=== PATIENT | female | born 1965 | race Caucasian/White ===

== ENCOUNTER 2017-01-07 11:50 | Emergency (ER) | payer OTHER ==
[~2017-01-07] VITALS: Ht 167.6 cm; Wt 90.0 kg
[~2017-01-07 11:50] MED LIST: DIVA250T PO; FIORIC PO; LORTA5 PO; PROM25TA5 PO; SUMA50TA2 PO; THYR15 PO
[2017-01-07 11:54] VITALS: BP 133/91; PULSE 108; RESP 18; TEMP 98.4; O2SAT 98
--- NOTE | 2017-01-07 12:23 | PD ---
HPI Chief Complaint: Pain: Acute or Chronic Time Seen by Provider: 12:12 Travel History International Travel<30 days: No Contact w/Intl Traveler<30days: No Traveled to known affect area: No History of Present Illness HPI 51-year-old female with history of hypertension, hypothyroidism, migraine headaches, presents to emergency department for evaluation of pain, generalized. Patient states this is been ongoing for the last 2 years. It has come significantly worse over the last 2 months and even more worse over the last few days. Patient states it started in her feet and has moved up to her neck. She has seen several doctors and neurologist and had imaging studies with no identifiable source. She has a appointment with director of teaching and learning in February. States that over the last few days the pain has become worse and it feels like her lungs are being squeezed. She cannot breath. He denies any significant chest pain or tightness. Has not been recently ill. She has no other symptoms to report at this time. PFSH Past Medical History Asthma: No Autoimmune Disease: No Heart Rhythm Problems: Yes (denies) Cancer: No Cardiac Catheterization: No Cardiovascular Problems: Yes High Cholesterol: No Chest Pain: Yes Congestive Heart Failure: No COPD: No Diabetes: No Diminished Hearing: Yes (L ear deaf) Endocrine: No Glaucoma: No Genitourinary: No Headaches: Yes Hypertension: Yes Musculoskeletal: Yes Neurologic: Yes Reproductive: Yes (ENDOMETRIOSIS, PELVIC MASSES) Respiratory: No Immunizations Current: Yes Migraines: Yes Myocardial Infarction: No Pneumonia: Yes Menopausal: Yes : 1 Para: 1 Ovarian Cysts: Yes Past Surgical History Abdominal Surgery: Yes Appendectomy: Yes Cholecystectomy: Yes Coronary Artery Bypass Graft: No Ear Surgery: Yes (x 6) Gynecologic Surgery: Yes Hysterectomy: Yes Tonsillectomy: Yes Other Surgery: Yes Social History Alcohol Use: No Tobacco Use: No (QUIT 2011) Substance Use: No Allergies-Medications (Allergen,Severity, Reaction): Coded Allergies: adhesive (Unverified Allergy, Severe, PT REPORTS SURGICAL TAPE PULLS SLIN , 01/07/17) codeine (Unverified Allergy, Severe, CAN'T BREATH, 01/07/17) hydroxyzine (Unverified Allergy, Severe, CAN'T BREATH, 01/07/17) meperidine (Unverified Allergy, Severe, CAN'T BREATH, 01/07/17) Uncoded Allergies: surgical tape (Allergy, Mild, pulls skin, 01/25/03) Reported Meds & Prescriptions Reported Meds & Active Scripts Active Fioricet Tab (Acetaminophen/Butalbital/Caffeine) 1 Tab 1 Tab PO Q6H PRN Reported [place] 5/325 (Hydrocodone/Acetaminophen 5/325) 5 mg/325 mg Tab 1 Tab PO Q6H PRN Sumatriptan Succinate 50 Mg Tab 50 Mg PO DAILY PRN Divalproex Sodium Dr (Divalproex Sodium) 250 Mg Tab 1,000 Mg PO Q12 Phenergan 25 mg (Promethazine HCl) 25 Mg Tab 25 Mg PO Q6H PRN [place] Thyroid (Thyroid) 15 Mg Tab 30 Mg PO DAILY Review of Systems Except as stated in HPI: all other systems reviewed are Neg Physical Exam Narrative GENERAL: Well-nourished female patient, in no acute distress. SKIN: Focused skin assessment warm/dry. HEAD: Atraumatic. Normocephalic. EYES: Pupils equal and round. No scleral icterus. No injection or drainage. ENT: No nasal bleeding or discharge. Mucous membranes pink and moist. NECK: Trachea midline. No JVD. CARDIOVASCULAR: Elevated rate and rhythm. No murmur appreciated. RESPIRATORY: No accessory muscle use. Clear to auscultation. Breath sounds equal bilaterally. GASTROINTESTINAL: Abdomen soft, non-tender, nondistended. Hepatic and splenic margins not palpable. MUSCULOSKELETAL: No obvious deformities. No clubbing. No cyanosis. No edema. NEUROLOGICAL: Awake and alert. No obvious cranial nerve deficits. Motor grossly within normal limits. Normal speech. Data Data Last Documented VS Vital Signs Date Time Temp Pulse Resp B/P (MAP) Pulse Ox O2 Delivery O2 Flow Rate FiO2 01/07/17 12:40 96 131/72 (91) 128/79 (95) 01/07/17 12:40 18 01/07/17 12:37 99 Room Air 01/07/17 11:54 98.4 Orders Orders Electrocardiogram (01/07/17 12:27) Basic Metabolic Panel (Bmp) (01/07/17 12:27) Ckmb (Isoenzyme) Profile (01/07/17 12:27) Complete Blood Count With Diff (01/07/17 12:27) D-Dimer (01/07/17 12:27) Magnesium (Mg) (01/07/17 12:27) Prothrombin Time / Inr (Pt) (01/07/17 12:27) Act Partial Throm Time (Ptt) (01/07/17 12:27) Troponin I (01/07/17 12:27) Lipase (01/07/17 12:27) Chest, Single Ap (01/07/17 12:27) Ecg Monitoring (01/07/17 12:27) Bilateral Bp Monitoring (01/07/17 12:27) Iv Access Insert/Monitor (01/07/17 12:27) Oximetry (01/07/17 12:27) Oxygen Administration (01/07/17 12:27) Sodium Chloride 0.9% Flush (Ns Flush) (01/07/17 12:30) Dexamethasone Inj (Decadron Inj) (01/07/17 12:30) Sodium Chlor 0.9% 1000 Ml Inj (Ns 1000 M (01/07/17 12:30) CKMB (01/07/17 12:34) CKMB% (01/07/17 12:34) Ed Discharge Order (01/07/17 13:51) Labs Laboratory Tests Test 01/07/17 12:34 White Blood Count 6.2 TH/MM3 Red Blood Count 4.34 MIL/MM3 Hemoglobin 13.4 GM/DL Hematocrit 39.0 % Mean Corpuscular Volume 89.7 FL Mean Corpuscular Hemoglobin 30.9 PG Mean Corpuscular Hemoglobin Concent 34.5 % Red Cell Distribution Width 13.4 % Platelet Count 203 TH/MM3 Mean Platelet Volume 7.6 FL Neutrophils (%) (Auto) 51.9 % Lymphocytes (%) (Auto) 37.1 % Monocytes (%) (Auto) 7.3 % Eosinophils (%) (Auto) 3.2 % Basophils (%) (Auto) 0.5 % Neutrophils # (Auto) 3.2 TH/MM3 Lymphocytes # (Auto) 2.3 TH/MM3 Monocytes # (Auto) 0.5 TH/MM3 Eosinophils # (Auto) 0.2 TH/MM3 Basophils # (Auto) 0.0 TH/MM3 CBC Comment DIFF FINAL Differential Comment Prothrombin Time 10.6 SEC Prothromb Time International Ratio 1.0 RATIO Activated Partial Thromboplast Time 27.1 SEC D-Dimer Quantitative (PE/DVT) LESS THAN 0.19 MG/L FEU Blood Urea Nitrogen 19 MG/DL Creatinine 0.91 MG/DL Random Glucose 129 MG/DL Calcium Level 8.5 MG/DL Magnesium Level 2.0 MG/DL Sodium Level 141 MEQ/L Potassium Level 3.8 MEQ/L Chloride Level 105 MEQ/L Carbon Dioxide Level 25.7 MEQ/L Anion Gap 10 MEQ/L Estimat Glomerular Filtration Rate 65 ML/MIN Total Creatine Kinase 106 U/L Creatine Kinase MB 1.5 NG/ML Troponin I LESS THAN 0.02 NG/ML Lipase 145 U/L MDM Medical Decision Making Medical Screen Exam Complete: Yes Emergency Medical Condition: Yes Medical Record Reviewed: Yes Differential Diagnosis Chronic pain versus acute pain versus neuropathy versus depression versus anxiety versus electrolyte abnormality versus costochondritis Narrative Course 51-year-old female presents to emergency department for evaluation of persistent pain. Patient appears without distress. She states that she wants to know what's causing her pain and has been unable to find this out outpatient through specialists. I explained to the patient initially that we may not come up with a reason why she is having her pain. She verbalizes understanding. Basic labs and x-ray imaging is ordered. Laboratory Tests Test 01/07/17 12:34 White Blood Count 6.2 TH/MM3 Red Blood Count 4.34 MIL/MM3 Hemoglobin 13.4 GM/DL Hematocrit 39.0 % Mean Corpuscular Volume 89.7 FL Mean Corpuscular Hemoglobin 30.9 PG Mean Corpuscular Hemoglobin Concent 34.5 % Red Cell Distribution Width 13.4 % Platelet Count 203 TH/MM3 Mean Platelet Volume 7.6 FL Neutrophils (%) (Auto) 51.9 % Lymphocytes (%) (Auto) 37.1 % Monocytes (%) (Auto) 7.3 % Eosinophils (%) (Auto) 3.2 % Basophils (%) (Auto) 0.5 % Neutrophils # (Auto) 3.2 TH/MM3 Lymphocytes # (Auto) 2.3 TH/MM3 Monocytes # (Auto) 0.5 TH/MM3 Eosinophils # (Auto) 0.2 TH/MM3 Basophils # (Auto) 0.0 TH/MM3 CBC Comment DIFF FINAL Differential Comment Prothrombin Time 10.6 SEC Prothromb Time International Ratio 1.0 RATIO Activated Partial Thromboplast Time 27.1 SEC D-Dimer Quantitative (PE/DVT) LESS THAN 0.19 MG/L FEU Blood Urea Nitrogen 19 MG/DL Creatinine 0.91 MG/DL Random Glucose 129 MG/DL Calcium Level 8.5 MG/DL Magnesium Level 2.0 MG/DL Sodium Level 141 MEQ/L Potassium Level 3.8 MEQ/L Chloride Level 105 MEQ/L Carbon Dioxide Level 25.7 MEQ/L Anion Gap 10 MEQ/L Estimat Glomerular Filtration Rate 65 ML/MIN Total Creatine Kinase 106 U/L Creatine Kinase MB 1.5 NG/ML Troponin I LESS THAN 0.02 NG/ML Lipase 145 U/L Last Impressions Chest X-Ray 01/07/17 1227 Signed Impressions: Service Date/Time: January 12:48 - CONCLUSION: No acute disease. No significant change has occurred. Andres Decker MD Findings are reviewed with my attending. I have also reviewed them with the patient. There no obvious emergent findings that would be causing the patient' s pain. I encouraged her to follow-up with her primary care provider and return immediately with any acute worsening of symptoms. Diagnosis Primary Impression: Generalized pain Referrals: Primary Care Physician Patient Instructions: Chronic Pain (ED), General Instructions Additional Instructions: Follow-up with your primary care provider Return immediately with any acute worsening of symptoms Med/Other Pt SpecificInfo: No Change to Meds Disposition: 01 DISCHARGE HOME Condition: Stable HintonElin dixon JOHANNA Jan 07, 2017 12:23
[2017-01-07] MEDS ORDERED: DEXAMETHASONE SOD PHOS 4 MG/ML VIAL IV PUSH ONE (12:30)
[2017-01-07] MEDS ORDERED: SODIUM CHLOR 0.9% 1000 ML INJ 1,000 ML IV ONE (12:30)
[2017-01-07] MEDS ORDERED: SODIUM CHLORIDE 0.9% FLUSH 10 ML FLUSH IVF PRN (12:30)
[2017-01-07 12:37] VITALS: RESP 18; O2SAT 98
[2017-01-07 12:40] VITALS: BP_SYST 128; BP_SYST 131; BP_DIAS 72; BP_DIAS 79; PULSE 96
[2017-01-07 13:06] LABS: AUTOMATED NEUTROPHIL # 3.2 TH/MM3 (1.8-7.7); BASOPHIL % 0.5 % (0.0-2.0); EOSINOPHIL # 0.2 TH/MM3 (0-0.4); EOSINOPHIL % 3.2 % (0.0-4.0); HEMO FLAGS DIFF FINAL; LYMPH % 37.1 % (9.0-44.0); LYMPHOCYTE # 2.3 TH/MM3 (1.0-4.8); MEAN CELL VOLUME 89.7 FL (80.0-100.0); MEAN CORPUSCULAR HEMOGLOBIN 30.9 PG (27.0-34.0); MEAN CORPUSCULAR HGB CONC 34.5 % (32.0-36.0); MONO % 7.3 % (0.0-8.0); NEUT % 51.9 % (16.0-70.0); PLATELET COUNT 203 TH/MM3 (150-450); RED BLOOD COUNT 4.34 MIL/MM3 (4.00-5.30); RED CELL DISTRIBUTION WIDTH 13.4 % (11.6-17.2); WHITE BLOOD COUNT 6.2 TH/MM3 (4.0-11.0)
[2017-01-07 13:14] LABS: ANION GAP 10 MEQ/L (5-15); BICARBONATE 25.7 MEQ/L (21.0-32.0); BLOOD UREA NITROGEN 19 MG/DL (7-18); CHLORIDE 105 MEQ/L (98-107); GLOMERULAR FILTRATION RATE 65 ML/MIN (>89); POTASSIUM 3.8 MEQ/L (3.5-5.1); SODIUM (NA) 141 MEQ/L (136-145)
[2017-01-07 13:18] LABS: CREATINE KINASE 106 U/L (26-192)
[2017-01-07 13:21] LABS: APTT (PATIENT) 27.1 SEC (24.3-30.1); PROTHROMBIN TIME - PATIENT 10.6 SEC (9.8-11.6)
[2017-01-07 13:30] LABS: CKMB 1.5 NG/ML (0.5-3.6)
--- NOTE | 2017-01-07 13:40 | RADRPT ---
EXAM DATE/TIME: 01/07/2017 12:48 [facility] COMPARISON: CHEST SINGLE AP, August 27, 2014, 21:35. INDICATIONS : Chest pains radiating into back, with pressure. MEDICAL HISTORY : None. SURGICAL HISTORY : None. ENCOUNTER: Initial ACUITY: 2 days PAIN SCORE: 10/10 LOCATION: Bilateral chest FINDINGS: A single view of the chest demonstrates the lungs to be symmetrically aerated without evidence of mas s, infiltrate or effusion. The cardiomediastinal contours are unremarkable. Osseous structures are intact. CONCLUSION: No acute disease. No significant change has occurred. Andres Decker MD on January 07, 2017 at 13:38 Board Certified Radiologist. This report was verified electronically.
--- NOTE | 2017-01-08 09:16 | EKG ---
Date Performed: 01/07/2017 Time Performed: 13:26:52 PTAGE: 51 years EKG: Sinus rhythm NORMAL ECG Compared to prior tracing no significant change PREVIOUS TRACING : 08/27/2014 21.41 DOCTOR: Deon Man Interpretating Date/Time 01/08/2017 09:16:07
== END 2017-01-07 21:06 | disposition home or self-care (01) ==
LOC: NEPC 11:50
DX: R52 Pain, unspecified (principal); I10 Essential (primary) hypertension; E03.9 Hypothyroidism, unspecified; Z79.899 Other long term (current) drug therapy; Z87.891 Personal history of nicotine dependence
CPT/HCPCS: 71010; 80048; 82550; 82552; 83690; 83735; 84484; 85025; 85379; 85610; 85730; 93005; 96374; 99285; J1100; J7030

== ENCOUNTER 2017-06-12 15:20 | Emergency (ER) | payer OTHER ==
[~2017-06-12] VITALS: Ht 167.6 cm; Wt 113.5 kg
[2017-06-12 15:29] VITALS: BP 134/77; PULSE 101; RESP 16; TEMP 98.8; O2SAT 97
[2017-06-12 17:00] VITALS: O2SAT 96
[2017-06-12] MEDS ORDERED: SODIUM CHLORIDE 0.9% FLUSH 10 ML FLUSH IVF PRN (17:30)
[2017-06-12] MEDS ORDERED: GABA100C4 PO (17:31)
[2017-06-12] MEDS ORDERED: OXYC1TAB63 PO (17:31)
[2017-06-12] MEDS ORDERED: TRIA37.5 PO (17:31)
[2017-06-12] MEDS ORDERED: SUMA50TA2 PO (17:31)
[2017-06-12] MEDS ORDERED: IBUP-232 PO (17:31)
[2017-06-12] MEDS ORDERED: ARMO120T PO (17:31)
[2017-06-12] MEDS ORDERED: FLUO1TAB3 PO (17:31)
[2017-06-12] MEDS ORDERED: GUAI1TAB18 (17:31)
[2017-06-12] MEDS ORDERED: ALPR0.5T3 PO (17:31)
[2017-06-12] MEDS ORDERED: CYCL10TA PO (17:31)
[2017-06-12] MEDS ORDERED: ESTR1TAB PO (17:31)
[2017-06-12] MEDS ORDERED: PROG100C PO (17:31)
--- NOTE | 2017-06-12 17:35 | PD ---
HPI Chief Complaint: Respiratory Symptoms Time Seen by Provider: 17:28 Travel History International Travel<30 days: No Contact w/Intl Traveler<30days: No Traveled to known affect area: No History of Present Illness HPI Patient presents with complaints of sore throat shortness of breath on exertion and subjective fever for 3 days. Daughter reports memory loss acutely over the last 3 weeks and more dramatically in the last day. Patient denies any headaches. Denies any gait abnormalities. Denies any extremity weakness or facial asymmetry. Denies any slurred speech. Patient with history of fibromyalgia and hypothyroidism. Patient states she feels washed out. Denies any nausea vomiting or diarrhea. No new rashes. History of smoking 20 years ago. Concerns of mold exposure. PFSH Past Medical History Asthma: No Autoimmune Disease: No Heart Rhythm Problems: Yes (denies) Cancer: No Cardiac Catheterization: No Cardiovascular Problems: Yes (STATES FLUID RETENTION, DENIES CARDIAC HX) High Cholesterol: No Chest Pain: Yes Congestive Heart Failure: No COPD: No Diabetes: No Diminished Hearing: Yes (L ear deaf) Endocrine: No Gastrointestinal Disorders: No Glaucoma: No Genitourinary: No Headaches: Yes Heparin Induced Thrombocytopen: Yes Hypertension: Yes Musculoskeletal: Yes Neurologic: Yes Reproductive: Yes (ENDOMETRIOSIS, PELVIC MASSES) Respiratory: No Immunizations Current: Yes Migraines: Yes Myocardial Infarction: No Pneumonia: Yes Thyroid Disease: Yes (hypo) Influenza Vaccination: No ?: Not Menopausal: Yes : 1 Para: 1 Ovarian Cysts: Yes Past Surgical History Abdominal Surgery: Yes Appendectomy: Yes Cholecystectomy: Yes Coronary Artery Bypass Graft: No Ear Surgery: Yes (x 6) Gynecologic Surgery: Yes Hysterectomy: Yes Tonsillectomy: Yes Other Surgery: Yes Social History Alcohol Use: No Tobacco Use: No (QUIT 2011) Substance Use: No Allergies-Medications (Allergen,Severity, Reaction): Coded Allergies: adhesive (Unverified Allergy, Severe, PT REPORTS SURGICAL TAPE PULLS SLIN , 06/12/17) codeine (Unverified Allergy, Severe, CAN'T BREATH, 06/12/17) hydroxyzine (Unverified Allergy, Severe, CAN'T BREATH, 06/12/17) meperidine (Unverified Allergy, Severe, CAN'T BREATH, 06/12/17) Uncoded Allergies: surgical tape (Allergy, Mild, pulls skin, 01/25/03) Reported Meds & Prescriptions Reported Meds & Active Scripts Active Reported Sumatriptan (Sumatriptan Succinate) 50 Mg Tab 50 Mg PO Q2HR PRN If a satisfactory response has not been obtained at 2 hours, a second dose may be administered Mucinex (Guaifenesin) 1,200 Mg Tab.er.12h Oxycodone-Acetaminophen 5-325 mg Tab 1 Tab PO Q8H PRN Estradiol 1 Mg Tab 1 Mg PO DAILY Progesterone Micronized 100 Mg Cap 100 Mg PO DAILY Triamterene-Hydrochlorothiazide 37.5-25 Mg Tab 1 Tab PO DAILY Alprazolam 0.5 Mg Tab 0.5 Mg PO DAILY PRN Ibuprofen 600 Mg Tab 600 Mg PO TID Gabapentin 100 Mg Cap 100 Mg PO HS Fluoxetine (Fluoxetine HCl) 20 Mg Tab 20 Mg PO DAILY Flexeril (Cyclobenzaprine HCl) 10 Mg Tab 10 Mg PO DAILY [place] Thyroid (Thyroid) 120 Mg Tab 150 Mg PO DAILY Review of Systems ROS Limitations: Altered Mental Status General / Constitutional: Positive: Chills, No: Fever Eyes: No: Visual changes HENT: Positive: Sore Throat, No: Headaches Cardiovascular: No: Chest Pain or Discomfort Respiratory: Positive: Shortness of Breath Gastrointestinal: No: Abdominal Pain Genitourinary: No: Dysuria Musculoskeletal: No: Pain Skin: No Rash Neurologic: No: Weakness Psychiatric: No: Depression Endocrine: No: Polydipsia Hematologic/Lymphatic: No: Easy Bruising Physical Exam Narrative GENERAL: Pleasant alert and oriented SKIN: Focused skin assessment warm/dry. HEAD: Atraumatic. Normocephalic. EYES: Pupils equal and round. No scleral icterus. No injection or drainage. ENT: No nasal bleeding or discharge. Mucous membranes pink and moist. NECK: Trachea midline. No JVD. Throat without erythema or edema CARDIOVASCULAR: Regular rate and rhythm. No murmur appreciated. Pain with palpation of the sternum RESPIRATORY: No accessory muscle use. Clear to auscultation. Breath sounds equal bilaterally. GASTROINTESTINAL: Abdomen soft, non-tender, nondistended. Hepatic and splenic margins not palpable. MUSCULOSKELETAL: No obvious deformities. No clubbing. No cyanosis. No edema. NEUROLOGICAL: Awake and alert. No obvious cranial nerve deficits. Motor grossly within normal limits. Normal speech. PSYCHIATRIC: Appropriate mood and affect; insight and judgment normal. Data Data Last Documented VS Vital Signs Date Time Temp Pulse Resp B/P (MAP) Pulse Ox O2 Delivery O2 Flow Rate FiO2 06/12/17 15:29 98.8 101 16 134/77 (96) 97 Orders Orders Complete Blood Count With Diff (06/12/17 17:28) Comprehensive Metabolic Panel (06/12/17 17:28) Ckmb (Isoenzyme) Profile (06/12/17 17:28) Troponin I (06/12/17 17:28) Urinalysis - C+S If Indicated (06/12/17 17:28) Iv Access Insert/Monitor (06/12/17 17:28) Ecg Monitoring (06/12/17 17:28) Oximetry (06/12/17 17:28) Oxygen Administration (06/12/17 17:28) Chest, Single Ap (06/12/17 17:28) Sodium Chloride 0.9% Flush (Ns Flush) (06/12/17 17:30) Ct Brain W/O Iv Contrast(Rout) (06/12/17 ) Labs Laboratory Tests Test 06/12/17 17:50 White Blood Count 8.0 TH/MM3 Red Blood Count 4.11 MIL/MM3 Hemoglobin 12.4 GM/DL Hematocrit 36.4 % Mean Corpuscular Volume 88.5 FL Mean Corpuscular Hemoglobin 30.2 PG Mean Corpuscular Hemoglobin Concent 34.1 % Red Cell Distribution Width 13.1 % Platelet Count 276 TH/MM3 Mean Platelet Volume 7.3 FL Neutrophils (%) (Auto) 55.2 % Lymphocytes (%) (Auto) 34.5 % Monocytes (%) (Auto) 6.8 % Eosinophils (%) (Auto) 2.9 % Basophils (%) (Auto) 0.6 % Neutrophils # (Auto) 4.5 TH/MM3 Lymphocytes # (Auto) 2.8 TH/MM3 Monocytes # (Auto) 0.5 TH/MM3 Eosinophils # (Auto) 0.2 TH/MM3 Basophils # (Auto) 0.0 TH/MM3 CBC Comment DIFF FINAL Differential Comment Urine Collection Type CLEAN CATCH Urine Color YELLOW Urine Turbidity CLEAR Urine pH 6.0 Urine Specific [place] GREATER/EQUAL 1.030 Urine Protein NEG mg/dL Urine Glucose (UA) NEG mg/dL Urine Ketones TRACE mg/dL Urine Occult Blood NEG Urine Nitrite NEG Urine Bilirubin NEG Urine Urobilinogen 0.2 MG/DL Urine Leukocyte Esterase NEG Urine WBC 0-2 /hpf Urine Squamous Epithelial Cells 0-5 /hpf Urine Amorphous Sediment FEW Microscopic Urinalysis Comment CULT NOT INDICATED Urine Collection Time 17:50 Blood Urea Nitrogen 21 MG/DL Creatinine 0.81 MG/DL Random Glucose 112 MG/DL Total Protein 7.3 GM/DL Albumin 3.1 GM/DL Calcium Level 8.5 MG/DL Alkaline Phosphatase 67 U/L Aspartate Amino Transf (AST/SGOT) 15 U/L Alanine Aminotransferase (ALT/SGPT) 25 U/L Total Bilirubin 0.3 MG/DL Sodium Level 136 MEQ/L Potassium Level 4.0 MEQ/L Chloride Level 102 MEQ/L Carbon Dioxide Level 26.8 MEQ/L Anion Gap 7 MEQ/L Estimat Glomerular Filtration Rate 74 ML/MIN Total Creatine Kinase 67 U/L Troponin I LESS THAN 0.02 NG/ML MDM Medical Decision Making Medical Screen Exam Complete: Yes Emergency Medical Condition: Yes Differential Diagnosis Viral syndrome, CVA, allergies, malingering, pneumonia, pharyngitis, allergies Narrative Course Assessment plan discussed the patient and daughter at bedside. Cardiac enzymes negative Last 72 hours Impressions Chest X-Ray 06/12/17 1728 Signed Impressions: Service Date/Time: Monday, June 12, 2017 17:36 - CONCLUSION: 1. No acute cardiopulmonary findings. Stable compared to prior dated 01/07/17. Christopher Lugo MD Head CT 06/12/17 0000 Signed Impressions: Service Date/Time: Monday, June 12, 2017 17:50 - CONCLUSION: 1. No acute intracranial abnormality identified. Christopher Lugo MD Diagnosis Primary Impression: Memory loss or impairment Additional Impression: Sore throat Patient Instructions: General Instructions Additional Instructions: Encouraged rest fluids and Motrin, encouraged [id number] antihistamine without pseudoephedrine. Z-Melvin to cover possible pharyngitis. Follow-up with PCP. Return to emergency room with any onset of new symptoms. Med/Other Pt SpecificInfo: Prescription(s) given Scripts Azithromycin (Zithromax Z-Melvin) 250 Mg Dspk 250 MG PO DIRECTED for Infection, #1 DSPK 0 Refills 500 MG (2 tabs) day 1, then 1 tab days 2-5. Prov: Ayo Villagran MD 06/12/17 Disposition: 01 DISCHARGE HOME Condition: Good Ayo Villagran MD Jun 12, 2017 17:35
[2017-06-12 18:05] LABS: AUTOMATED NEUTROPHIL # 4.5 TH/MM3 (1.8-7.7); BASOPHIL % 0.6 % (0.0-2.0); EOSINOPHIL # 0.2 TH/MM3 (0-0.4); EOSINOPHIL % 2.9 % (0.0-4.0); HEMATOCRIT 36.4 % (35.0-46.0); HEMOGLOBIN 12.4 GM/DL (11.6-15.3); LYMPH % 34.5 % (9.0-44.0); LYMPHOCYTE # 2.8 TH/MM3 (1.0-4.8); MEAN CELL VOLUME 88.5 FL (80.0-100.0); MEAN CORPUSCULAR HEMOGLOBIN 30.2 PG (27.0-34.0); MEAN CORPUSCULAR HGB CONC 34.1 % (32.0-36.0); MEAN PLATELET VOLUME 7.3 FL (7.0-11.0); MONO % 6.8 % (0.0-8.0); MONOCYTE # 0.5 TH/MM3 (0-0.9); NEUT % 55.2 % (16.0-70.0); PLATELET COUNT 276 TH/MM3 (150-450); RED BLOOD COUNT 4.11 MIL/MM3 (4.00-5.30); RED CELL DISTRIBUTION WIDTH 13.1 % (11.6-17.2)
--- NOTE | 2017-06-12 18:06 | RADRPT ---
EXAM DATE/TIME: 06/12/2017 17:36 [facility] COMPARISON: CHEST SINGLE AP, January 07, 2017, 12:48. INDICATIONS : Short of breath MEDICAL HISTORY : None. SURGICAL HISTORY : None. ENCOUNTER: Initial ACUITY: 2 weeks PAIN SCORE: 0/10 LOCATION: Bilateral chest FINDINGS: A single view of the chest demonstrates the lungs to be symmetrically aerated without evidence of mas s, infiltrate or effusion. The cardiomediastinal contours are unremarkable. Osseous structures are intact. CONCLUSION: 1. No acute cardiopulmonary findings. Stable compared to prior dated 01/07/17. Christopher Lugo MD on June 12, 2017 at 18:03 Board Certified Radiologist. This report was verified electronically.
[2017-06-12 18:07] LABS: BILIRUBIN, URINE NEG (NEG); BLOOD, URINE NEG (NEG); GLUCOSE,URINE NEG (NEG); KETONE, URINE TRACE mg/dL (NEG); NITRITE,URINE NEG (NEG); URINE COLOR YELLOW (YELLW/STRAW); URINE LEUKOCYTE ESTERASE NEG (NEG)
--- NOTE | 2017-06-12 18:09 | RADRPT ---
EXAM DATE/TIME: 06/12/2017 17:50 [facility] COMPARISON: CT BRAIN W/O CONTRAST, November 28, 2014, 17:49. INDICATIONS : Weakness, dizzy headache, memory loss. RADIATION DOSE: 53.70 CTDIvol (mGy) MEDICAL HISTORY : Hypothyroidism. Hypertension. Gastroesophageal reflux disease.CP SURGICAL HISTORY : Hysterectomy. Cholecystectomy.Appendectomy.Cervical fusion, Knee ENCOUNTER: Initial ACUITY: 1 week PAIN SCALE: 5/10 LOCATION: cranial TECHNIQUE: Multiple contiguous axial images were obtained of the head. Using automated exposure control and adj ustment of the mA and/or kV according to patient size, radiation dose was kept as low as reasonably a chievable to obtain optimal diagnostic quality images. DICOM format image data is available electro nically for review and comparison. FINDINGS: CEREBRUM: The ventricles are normal for age. No evidence of midline shift, mass lesion, hemorrhage or acute in farction. No extra-axial fluid collections are seen. POSTERIOR FOSSA: The cerebellum and brainstem are intact. The 4th ventricle is midline. The cerebellopontine angle i s unremarkable. EXTRACRANIAL: The visualized portion of the orbits is intact. SKULL: The calvaria is intact. No evidence of skull fracture. CONCLUSION: 1. No acute intracranial abnormality identified. Christopher Lugo MD on June 12, 2017 at 18:05 Board Certified Radiologist. This report was verified electronically.
[2017-06-12 18:11] LABS: CHLORIDE 102 MEQ/L (98-107); SODIUM (NA) 136 MEQ/L (136-145)
[2017-06-12 18:14] LABS: CALCIUM 8.5 MG/DL (8.5-10.1)
[2017-06-12 18:15] LABS: ALBUMIN 3.1 GM/DL (3.4-5.0); BICARBONATE 26.8 MEQ/L (21.0-32.0); BLOOD UREA NITROGEN 21 MG/DL (7-18); GLUCOSE,RANDOM 112 MG/DL (74-106)
[2017-06-12 18:18] LABS: ALT (GPT) 25 U/L (10-53); AST (GOT) 15 U/L (15-37); CREATININE 0.81 MG/DL (0.50-1.00); GLOMERULAR FILTRATION RATE 74 ML/MIN (>89)
[2017-06-12 18:19] LABS: TOTAL BILIRUBIN ADULT 0.3 MG/DL (0.2-1.0); TOTAL PROTEIN 7.3 GM/DL (6.4-8.2)
[2017-06-12 18:21] LABS: ALKALINE PHOSPHATASE 67 U/L (45-117)
[2017-06-12 18:22] LABS: WBC, URINE 0-2 /hpf (0-5)
[2017-06-12 18:23] LABS: AMORPHOUS SEDIMENT, URINE FEW; SQUAMOUS EPITHELIAL CELL URINE 0-5 /hpf (0-5); TROPONIN I LESS THAN 0.02 NG/ML (0.02-0.05)
[2017-06-12] MEDS ORDERED: ZITHTAB PO (18:42)
[2017-06-12 18:46] VITALS: BP_SYST 11; BP_SYST 111; BP_DIAS 77; PULSE 90; RESP 16; O2SAT 99
--- NOTE | 2017-06-13 19:08 | EKG ---
Date Performed: 06/12/2017 Time Performed: 15:37:18 PTAGE: 52 years EKG: Sinus rhythm POSSIBLE LEFT ATRIAL ENLARGEMENT Compared to previous tracing, atrial abnormality slightly increased BORDERLINE ECG PREVIOUS TRACING : 01/07/2017 13.26 DOCTOR: Barak Dozier Interpretating Date/Time 06/13/2017 19:07:49
== END 2017-06-12 18:46 | disposition home or self-care (01) ==
LOC: PHED 15:20
DX: R41.3 Other amnesia (principal); J02.9 Acute pharyngitis, unspecified; E03.9 Hypothyroidism, unspecified; M79.7 Fibromyalgia; I10 Essential (primary) hypertension; Z87.891 Personal history of nicotine dependence
CPT/HCPCS: 70450; 71045; 80053; 81001; 82550; 84484; 85025; 93005